=== PATIENT | female | born 1975 | race Caucasian/White ===

== ENCOUNTER 2023-05-08 09:39 | Outpatient (OUT) | payer MEDICAID, SELFPAY ==
--- NOTE | 2023-05-08 | ECG_ITS ---
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
--- NOTE | 2023-05-08 10:01 | XR_ITS ---
The [address] [address] Patient Name: NICA JOHN MRN: [id number] date: 1975 Sex: F Assigned Patient Location: CARD Current Patient Location: CARD Accession/Order Number: [id number] Exam Date: 05/08/2023 10:14 Report Date: 05/08/2023 10:54 At the request of: ZOEY KELLER Procedure: XR chest 2V EXAM: XR chest 2V HISTORY: Pre-Operative Clearance COMPARISON: None. TECHNIQUE: PA and lateral views of the chest. FINDINGS: The cardiomediastinal silhouette is normal. No focal consolidation is identified. There is no pneumothorax. No pleural effusion is noted. The osseous structures are intact. XR/XR chest 2V IMPRESSION: No acute cardiopulmonary process. Electronically authenticated by: ALEJANDRA FLORES Date: 05/08/2023 10:54
== END 2023-05-08 09:40 | disposition home or self-care (01) ==
LOC: CARD 09:45
DX: Z01.818 Encounter for other preprocedural examination (principal)
CPT/HCPCS: 71046; 93005